=== PATIENT | male | born 2000 | race Caucasian/White ===

== ENCOUNTER 2023-01-09 01:14 | Emergency (ER) | payer OTHER ==
[~2023-01-09] VITALS: Ht 177.8 cm; Wt 93.0 kg
[2023-01-09 01:21] VITALS: BP 147/87
== END 2023-01-09 01:42 ==
LOC: EDH 01:14
DX: R68.89 Other general symptoms and signs (principal); Z53.21 Procedure and treatment not carried out due to patient leaving prior to being seen by health care provider
CPT/HCPCS: 99281